=== PATIENT | female | born 1945 | race American Indian/Alaskan Native ===

== ENCOUNTER 2016-10-10 09:05 | Outpatient (CLI) | payer MEDICARE ==
[2016-10-10 09:37] LABS: Blood Urea Nitrogen 13 mg/dL (7-17)
[2016-10-10] MEDS ORDERED: NACL ONE (10:22)
--- NOTE | 2016-10-10 12:46 | Cat Scan Report ---
CT ABDOMEN AND PELVIS WITH CONTRAST INDICATION: Abdominal pain. COMPARISON: 02/24/2014. FINDINGS: Abdomen and pelvis CT performed following oral contrast and intravenous administration of 100 cc of Omnipaque 300. LUNG BASES: Nonspecific distal esophageal wall prominence/thickening, not excluded for gastroesophageal reflux and/or hiatal hernia, amongst others. Right hemidiaphragm again mildly elevated. ABDOMEN: Stable cholecystectomy clips. Right hepatic lobe approximately 18 cm in midclavicular length. Subtle fatty hepatic infiltration not excluded. Patent veins. No biliary dilatation or focal suspicious lesions. Pancreas, adrenals, aorta, IVC and kidneys remain within normal limits. Few renal cortical hypodensities/approximately 1.7 cm lower pole cyst. No ascites or significant adenopathy. Opacified GI tract nonobstructive. Normal appendix. Unremarkable colon. Small fat-containing umbilical and supraumbilical hernias with a transverse neck of approximately 7 mm again noted. PELVIS: Proximal to mid sigmoid diverticulosis also again seen. Normal remainder rectosigmoid and urinary bladder. Uterus surgically absent. Few small pelvic phleboliths. No free fluid or significant adenopathy. A right paraspinal subcutaneous pacemaker battery pack posteriorly is new with 2 emanating leads becoming intraspinal about T12 and extending cephalad to terminate about T7-T8 levels. Mild multilevel spinal degenerative spurring. Lower lumbar facet arthropathy. Approximately 3 mm anterolisthesis of L4 over L5. CONCLUSION: No acute CT abnormality with various incidental findings, including interval spinal stimulator placement, as above. Thank you for the opportunity to participate in this patient's care.
== END 2016-10-10 09:06 | disposition home or self-care (01) ==
LOC: CT 09:05
PROVIDERS: ATTEND Internal Medicine Gastroenterology
DX: N28.1 Cyst of kidney, acquired (principal); K42.9 Umbilical hernia without obstruction or gangrene; K57.30 Diverticulosis of large intestine without perforation or abscess without bleeding; J98.6 Disorders of diaphragm; I87.8 Other specified disorders of veins; M12.88 Other specific arthropathies, not elsewhere classified, other specified site; Z90.710 Acquired absence of both cervix and uterus; Z90.49 Acquired absence of other specified parts of digestive tract
CPT/HCPCS: 36415; 74177; 82565; 84520; Q9967

== ENCOUNTER 2018-03-26 06:50 | Day surgery (SDC) | payer MEDICARE ==
[2018-03-26] MEDS ORDERED: ECOTRIN PO ONE (07:54)
[2018-03-26] MEDS ORDERED: NACL 0.9% 500 ML 500 ML IV SCH (08:00)
[2018-03-26 09:03] LABS: Hematocrit 37.1 % (30.3-42.9); Hemoglobin 12.2 gm/dl (10.1-14.3); Mean Corpuscular HGB Conc 33 % (30-34); Mean Corpuscular Volume 84 fl (79-97); Platelet Count 249 K/mm3 (140-440); Red Blood Count 4.42 M/mm3 (3.65-5.03); Red Cell Distribution Width 14.6 % (13.2-15.2)
[2018-03-26 09:10] LABS: INR 0.95 (0.87-1.13)
[2018-03-26 09:24] LABS: Partial Thromboplastin Time 33.5 Sec. (24.2-36.6)
[2018-03-26 09:35] LABS: BUN/Creatinine Ratio 18; Blood Urea Nitrogen 14 mg/dL (7-17); Calcium 9.2 mg/dL (8.4-10.2); Hemolysis Index 96
[2018-03-26] MEDS ORDERED: HEPARIN 10,000 UNITS/10 ML ONE (09:57)
[2018-03-26] MEDS ORDERED: HEPARIN/NS 5000 UNIT/500ML(CATH LAB) 1,000 ML IR ONE (09:57)
[2018-03-26] MEDS ORDERED: XYLOCAINE 2% INFILTRATI ONE (09:58)
[2018-03-26] MEDS ORDERED: CALAN ONE (09:58)
[2018-03-26 10:11] LABS: Basophils % (Manual) 0 % (0.0-1.8); Total Cells Counted 100
[2018-03-26 10:12] LABS: Anisocytosis 1+; Ovalocytes Few; Platelet Estimate Consistent w Auto; Poikilocytosis 1+
[2018-03-26] MEDS: VERSED ONE ×2 (10:24→10:27)
[2018-03-26] MEDS: SUBLIMAZE ONE ×2 (10:25→10:27)
[2018-03-26] MEDS ORDERED: ATROPINE 0.1% (CARDIAC) ONE (10:39)
--- NOTE | 2018-03-26 11:41 | Cardiac Catherization Report ---
INDICATION: The patient is a 72-year-old female with complaints of atypical chest pain and shortness of breath, who has negative stress nuclear imaging in the past, but continues to have persistent symptoms and hence scheduled for cardiac catheterization for definitive diagnosis and treatment. The patient is aware of the procedure, potential complications, and alternatives of therapy available. DESCRIPTION OF PROCEDURE: The patient was brought to the catheterization laboratory in a fasting condition. The right wrist area and forearm thoroughly cleansed with Betadine solution. Sterile drapes were applied. The patient was evaluated for moderate sedation and was felt to be appropriate candidate for moderate sedation. The patient received IV Versed and fentanyl and subsequently monitored continuously with pulse oximetry, EKG monitoring, and hemodynamic monitoring. Right radial artery puncture was made using 21-gauge arterial puncture needle after local anesthesia. The patient received 5 mg of intra-arterial verapamil and 3000 units of intravenous heparin. Using multipurpose catheter, left ventriculogram was performed using hand injection. Subsequently, 5-[place] Lloyd catheter was used to obtain the angiograms of the left coronary artery in multiple views followed by angiograms of the right coronary artery. At the end of the procedure, catheter and sheath were removed. Good hemostasis was achieved with a radial band application. No untoward complications were noted. At the end of the procedure, the patient was communicating normally, breathing normally, and no focal deficits were noted. The patient's sedation started at 10:29 a.m. and ended at 10:39 a.m. No untoward complications were noted. The following findings were noted. HEMODYNAMICS: 1. Opening aortic pressure 132/55, left ventricular pressure 138/23. No gradient across the aortic valve. Estimated ejection fraction 55%. 2. Left ventriculogram done in MARIANO projection using hand injection showed normal sized left ventricle with normal contractility. Mitral regurgitation could not be evaluated because of limited amount of dye injected. 3. Right coronary artery dominant vessel arises normally from the right coronary cusp, minimal irregularities noted in the RCA. 4. Left coronary artery arises normally from left coronary cusp. There is a 20% ostial diagonal lesion noted, which is very smooth. Otherwise, rest of the LAD showed very minimal irregularities. Circumflex artery similarly is almost angiographically normal. FINAL IMPRESSION: 1. Normal sized left ventricle with normal contractility with elevated end-diastolic pressure. 2. Minimal coronary artery disease. 3. The patient tolerated the sedation well. No untoward complications noted. 4. Good hemostasis was achieved with radial band application. The patient was transferred to the room in stable condition. At this time, etiology of her symptoms is not clear. I explained to the patient that she may need further evaluation for her shortness of breath for noncardiac causes. The patient was transferred to the room in stable condition. JOB# [id number] BOUCHRA/KYLAH
--- NOTE | 2018-03-26 12:38 | Short Stay Summary ---
Short Stay Documentation Date of service: 03/26/18 - History H&P: obtained from office - Allergies and Medications Current Medications: Allergies No Known Allergies Allergy (Unverified 02/24/14 09:39) Home Medications Medication Instructions Recorded Confirmed Last Taken Type AtorvaSTATin [Lipitor] 80 mg PO QHS 03/26/18 03/26/18 03/25/18 History 1tab Carvedilol 25 mg PO BID 03/26/18 03/26/18 03/26/18 06:00 History 1 tab Potassium Chloride [Klor-Con M20] 20 mg PO BID 03/26/18 03/26/18 03/25/18 History 1 tab amLODIPine 10 mg PO BID 03/26/18 03/26/18 03/26/18 06:00 History 1 tab Active Medications Sodium Chloride (Nacl 0.9% 500 Ml) 500 mls @ 50 mls/hr IV DIRECT KIN Stop: 03/26/18 17:59 Last Admin: 03/26/18 10:15 Dose: 100 mls Documented by: - Brief post op/procedure progress note Date of procedure: 03/26/18 Pre-op diagnosis: chest pain, SOB Post-op diagnosis: same Procedure: [facility] - see dictated cath report Anesthesia: local Estimated blood loss: none Condition: stable - Disposition Condition at discharge: Good Disposition: [id number] TO HOME OR SELFCARE - Discharge Diagnoses (1) Mild coronary artery disease Status: Chronic Short Stay Discharge Plan Activity: advance as tolerated Diet: low fat, low cholesterol, low salt Wound: open to air, keep clean and dry, per your surgeon's advice Follow up with: LEATHA MONTERO MD [Primary Care Provider] - 7 Days
[2018-03-26 14:50] VITALS: BP 133/55
== END 2018-03-26 15:03 | disposition home or self-care (01) ==
LOC: CATHLABREC 06:50
PROVIDERS: ATTEND Internal Medicine
DX: I25.10 Atherosclerotic heart disease of native coronary artery without angina pectoris (principal); E78.00 Pure hypercholesterolemia, unspecified; I10 Essential (primary) hypertension; Z79.899 Other long term (current) drug therapy; Z90.710 Acquired absence of both cervix and uterus; Z98.890 Other specified postprocedural states; Z80.9 Family history of malignant neoplasm, unspecified; Z82.49 Family history of ischemic heart disease and other diseases of the circulatory system
CPT/HCPCS: 36415; 80048; 85007; 85025; 85610; 85730; 93005; 93010; 93458; 99156; C1887; C1894; J1644; J2250; J3010; J7040; J0461; Q9967